=== PATIENT | female | born 1940 | race Caucasian/White ===

== ENCOUNTER 2016-08-02 07:01 | Inpatient (IN) | payer OTHER ==
[~2016-08-02] VITALS: Ht 152.4 cm; Wt 64.0 kg
[~2016-08-02 07:01] MED LIST: ADULT LOW DOSE81 M1 PO; ALTOPREV40 MG PO; BISOPROLOL-HCT1 EAC4 PO; BISOPROLOL-HCT1 EACH PO; CALCIUM600 MG PO; CYANOCOBALAM1000 MCG PO; Cipro PO; DITROPAN5 MG PO; Estrace PO; FORTEO20 MICROGR SC; GLUCOPHAGE500 MG PO; HYDROXYCHLOROQ200 MG PO; KADIAN30 MG PO; LISINOPRIL10 MG PO; LOVASTATIN20 MG PO; Levaquin PO; Martinic PO; Medrol Dosepak PO; NEURONTIN100 MG PO; OXAYDO5 MG PO; OXYCODONE5 MG PO; OxyCODONE PO; OxyCONTIN PO; PRINIVIL10 MG PO; PROTONIX40 MG PO; SYNTHROID50 MCG PO; VITAMIN D31000 UNI2 PO; VITAMIN D50000 UNI1 PO; [UNRECOGNIZED DRUG - REMARK] PO
[2016-08-02 07:49] VITALS: BP 102/62
[2016-08-02 08:02] LABS: POINT-OF-CARE METER ID UU14174212
[2016-08-02 15:13] LABS: C DIFF TOXIN NEGATIVE (NEGATIVE)
[2016-08-02 15:14] LABS: PROBE CHECK PASS; SPECIMEN PROCESSING CONTROL PASS
[2016-08-02 16:00] VITALS: BP 111/72
[2016-08-02 16:06] VITALS: BP 111/72
[2016-08-02 18:52] VITALS: BP 104/61
[2016-08-02 18:52] LABS: MCH 25.6 PG (29.0-34.0); MCHC 30.8 G/DL (30.0-36.0); MEAN PLAT.VOLUME 10.5 uM^3 (9.5-12.4); PLATELET COUNT 251 K/uL (156-360); RBC DIS.WIDTH-CV 15.2 % (11.8-14.6); RBC DIS.WIDTH-SD 45.8 % (39-53); RED BLOOD COUNT 4.46 M/uL (3.80-5.20)
[2016-08-02 19:03] LABS: WHITE BLOOD COUNT 16.4 K/uL (4.1-10.2)
[2016-08-02 19:27] LABS: ANION GAP 10 MEQ/L (2-14); CHLORIDE 102 MEQ/L (99-109); GFR ESTIMATE (CALCULATED) > 59 mL/min/; GLUCOSE 284 mg/dL (70-99); POTASSIUM 4.2 MEQ/L (3.7-5.4); SAMPLE HEMOLYSIS CHECK 0; SAMPLE ICTERIC CHECK 0; SAMPLE LIPEMIA CHECK 0; SODIUM 136 MEQ/L (136-147); UREA NITROGEN (BUN) 13 mg/dL (9-23)
[2016-08-02 19:28] LABS: MAGNESIUM 0.9 mg/dl (1.3-2.7)
[2016-08-03] VITALS (11 sets, daily range): BP systolic 80–147; BP diastolic 50–82
[2016-08-03 10:38] LABS: HEMATOCRIT 39.6 % (36.0-46.0); MCH 25.6 PG (29.0-34.0); MCHC 30.6 G/DL (30.0-36.0); MCV 83.7 FL (83-99); MEAN PLAT.VOLUME 10.2 uM^3 (9.5-12.4); PLATELET COUNT 231 K/uL (156-360); RBC DIS.WIDTH-CV 15.3 % (11.8-14.6); RBC DIS.WIDTH-SD 46.6 % (39-53); RED BLOOD COUNT 4.73 M/uL (3.80-5.20); WHITE BLOOD COUNT 12.8 K/uL (4.1-10.2)
[2016-08-03 11:08] LABS: ANION GAP 7 MEQ/L (2-14); CHLORIDE 102 MEQ/L (99-109); GFR ESTIMATE (CALCULATED) > 59 mL/min/; GLUCOSE 210 mg/dL (70-99); POTASSIUM 4.3 MEQ/L (3.7-5.4); SAMPLE HEMOLYSIS CHECK 0; SAMPLE ICTERIC CHECK 0; SAMPLE LIPEMIA CHECK 0; SODIUM 138 MEQ/L (136-147); UREA NITROGEN (BUN) 14 mg/dL (9-23)
[2016-08-03 11:13] LABS: MAGNESIUM 1.7 mg/dl (1.3-2.7)
[2016-08-04] VITALS (7 sets, daily range): BP systolic 122–137; BP diastolic 64–85
[2016-08-04 07:50] LABS: HEMATOCRIT 32.6 % (36.0-46.0); MCH 25.7 PG (29.0-34.0); MCHC 30.7 G/DL (30.0-36.0); MCV 83.8 FL (83-99); MEAN PLAT.VOLUME 10.3 uM^3 (9.5-12.4); PLATELET COUNT 185 K/uL (156-360); RBC DIS.WIDTH-CV 15.2 % (11.8-14.6); RED BLOOD COUNT 3.89 M/uL (3.80-5.20); WHITE BLOOD COUNT 12.2 K/uL (4.1-10.2)
[2016-08-04 08:17] LABS: ANION GAP 7 MEQ/L (2-14); CHLORIDE 103 MEQ/L (99-109); GFR ESTIMATE (CALCULATED) > 59 mL/min/; GLUCOSE 204 mg/dL (70-99); POTASSIUM 4.2 MEQ/L (3.7-5.4); SAMPLE HEMOLYSIS CHECK 0; SAMPLE ICTERIC CHECK 0; SAMPLE LIPEMIA CHECK 0; SODIUM 139 MEQ/L (136-147); UREA NITROGEN (BUN) 21 mg/dL (9-23)
[2016-08-04 08:19] LABS: MAGNESIUM 1.3 mg/dl (1.3-2.7)
[2016-08-04 21:45] LABS: C DIFF TOXIN ND (NEGATIVE)
[2016-08-05 04:14] VITALS: BP 137/83
[2016-08-05 05:54] LABS: MCH 25.5 PG (29.0-34.0); MCHC 30.3 G/DL (30.0-36.0); MCV 84.2 FL (83-99); MEAN PLAT.VOLUME 10.6 uM^3 (9.5-12.4); PLATELET COUNT 178 K/uL (156-360); RBC DIS.WIDTH-CV 15.3 % (11.8-14.6); RBC DIS.WIDTH-SD 47.3 % (39-53); RED BLOOD COUNT 3.68 M/uL (3.80-5.20); WHITE BLOOD COUNT 10.1 K/uL (4.1-10.2)
[2016-08-05 06:18] LABS: ANION GAP 9 MEQ/L (2-14); CHLORIDE 103 MEQ/L (99-109); GFR ESTIMATE (CALCULATED) > 59 mL/min/; GLUCOSE 206 mg/dL (70-99); MAGNESIUM 1.4 mg/dl (1.3-2.7); POTASSIUM 3.9 MEQ/L (3.7-5.4); SAMPLE HEMOLYSIS CHECK 0; SAMPLE ICTERIC CHECK 0; SAMPLE LIPEMIA CHECK 0; SODIUM 140 MEQ/L (136-147); UREA NITROGEN (BUN) 16 mg/dL (9-23)
[2016-08-05 07:05] VITALS: BP 139/78
[2016-08-05 11:15] VITALS: BP 157/68
[2016-08-05 15:15] VITALS: BP 147/87
[2016-08-05 20:00] VITALS: BP 157/86
[2016-08-05 20:33] VITALS: BP 125/78
[2016-08-06] VITALS (7 sets, daily range): BP systolic 118–144; BP diastolic 67–90
[2016-08-06 00:07] LABS: POINT-OF-CARE USER ID AHSUCEG
[2016-08-06 06:10] LABS: HEMATOCRIT 31.4 % (36.0-46.0); MCH 25.9 PG (29.0-34.0); MCHC 31.2 G/DL (30.0-36.0); MCV 82.8 FL (83-99); MEAN PLAT.VOLUME 10.5 uM^3 (9.5-12.4); PLATELET COUNT 206 K/uL (156-360); RBC DIS.WIDTH-CV 15.1 % (11.8-14.6); RED BLOOD COUNT 3.79 M/uL (3.80-5.20); WHITE BLOOD COUNT 8.9 K/uL (4.1-10.2)
[2016-08-06 06:33] LABS: POINT-OF-CARE USER ID AHSUCEG
[2016-08-06 06:37] LABS: ANION GAP 8 MEQ/L (2-14); CHLORIDE 102 MEQ/L (99-109); GFR ESTIMATE (CALCULATED) > 59 mL/min/; GLUCOSE 194 mg/dL (70-99); POTASSIUM 3.6 MEQ/L (3.7-5.4); SAMPLE HEMOLYSIS CHECK 0; SAMPLE ICTERIC CHECK 0; SAMPLE LIPEMIA CHECK 0; SODIUM 137 MEQ/L (136-147); UREA NITROGEN (BUN) 7 mg/dL (9-23)
[2016-08-06 06:49] LABS: MAGNESIUM 1.1 mg/dl (1.3-2.7)
[2016-08-07 00:05] LABS: POINT-OF-CARE USER ID AHSUCEG
[2016-08-07 03:56] VITALS: BP 131/78
[2016-08-07 07:03] VITALS: BP 134/84
[2016-08-07 07:15] LABS: HEMATOCRIT 31.3 % (36.0-46.0); MCH 25.5 PG (29.0-34.0); MCHC 30.7 G/DL (30.0-36.0); MCV 83.2 FL (83-99); PLATELET COUNT 213 K/uL (156-360); RBC DIS.WIDTH-CV 15.4 % (11.8-14.6); RBC DIS.WIDTH-SD 47.1 % (39-53); RED BLOOD COUNT 3.76 M/uL (3.80-5.20); WHITE BLOOD COUNT 7.3 K/uL (4.1-10.2)
[2016-08-07 07:40] LABS: ANION GAP 6 MEQ/L (2-14); CHLORIDE 102 MEQ/L (99-109); GFR ESTIMATE (CALCULATED) > 59 mL/min/; GLUCOSE 201 mg/dL (70-99); POTASSIUM 3.8 MEQ/L (3.7-5.4); SAMPLE HEMOLYSIS CHECK 0; SAMPLE ICTERIC CHECK 0; SAMPLE LIPEMIA CHECK 0; SODIUM 137 MEQ/L (136-147); UREA NITROGEN (BUN) 5 mg/dL (9-23)
[2016-08-07 11:00] VITALS: BP 131/72
[2016-08-07 15:43] VITALS: BP 138/78
== END 2016-08-07 18:04 | disposition home or self-care (01) | DRG 331 ==
LOC: 2SOUTH 07:01 → 2EAST 07:01 → 2SOUTH 12:37 → 2EAST 15:56
PROVIDERS: Physician Assistant; Surgery
PROC: 0DTF0ZZ Resection of Right Large Intestine, Open Approach (ICD-10-PCS; principal; 2016-08-02)
DX: C18.2 Malignant neoplasm of ascending colon (principal); I10 Essential (primary) hypertension; E11.9 Type 2 diabetes mellitus without complications; E78.5 Hyperlipidemia, unspecified; K21.0 Gastro-esophageal reflux disease with esophagitis; K44.9 Diaphragmatic hernia without obstruction or gangrene; R63.4 Abnormal weight loss; R19.09 Other intra-abdominal and pelvic swelling, mass and lump; M54.9 Dorsalgia, unspecified
CPT/HCPCS: 80048; 82378; 82948; 83735; 84100; 85027; 86850; 86900; 86901; 86920; 87493; 88309; 93005; 94799; J0330; J1100; J1170; J1335; J1650; J1815; J1885; J2405; J2550; J2710; J3010; J3475; J7030; J7050; J7120; P9016; P9047

== ENCOUNTER 2016-09-04 08:15 | Inpatient (IN) | payer OTHER ==
[~2016-09-04] VITALS: Ht 157.5 cm; Wt 86.5 kg
[2016-09-04 09:12] LABS: EOSINOPHIL (%) 0.6 % (0-5); EOSINOPHIL COUNT 0.1 K/uL (0-0.3); HEMATOCRIT 39.4 % (36.0-46.0); IMMATURE GRANULOCYTE (%) 0.3 % (0.0-0.7); IMMATURE GRANULOCYTE COUNT 0.3 K/uL; LYMPHOCYTE COUNT 1.3 K/uL (1.0-2.8); MCH 25.5 PG (29.0-34.0); MCV 82.3 FL (83-99); MEAN PLAT.VOLUME 10.6 uM^3 (9.5-12.4); MONOCYTE (%) 5.6 % (3-12); MONOCYTE COUNT 0.6 K/uL (0-0.8); NEUTROPHIL COUNT 9.5 K/uL (1.8-6.4); RBC DIS.WIDTH-CV 16.4 % (11.8-14.6); RBC DIS.WIDTH-SD 48.9 % (39-53)
[2016-09-04 09:13] LABS: CHLORIDE 92 mEq/L (99-109); POTASSIUM 4.9 mEq/L (3.7-5.4); SODIUM 134 mEq/L (136-147)
[2016-09-04 09:15] LABS: PLATELET COUNT 331 K/uL (156-360); RED BLOOD COUNT 4.79 M/uL (3.80-5.20); WHITE BLOOD COUNT 11.5 K/uL (4.1-10.2)
[2016-09-04 09:16] LABS: GLUCOSE 174 mg/dL (70-99)
[2016-09-04 09:17] LABS: ANION GAP 17 MEQ/L (2-14)
[2016-09-04 09:18] LABS: TOTAL BILIRUBIN 0.7 mg/dL (0.0-1.0)
[2016-09-04 09:19] LABS: ALKALINE PHOSPHATASE 69 IU/L (3-129); GFR ESTIMATE (CALCULATED) 10 mL/min/
[2016-09-04 09:20] LABS: UREA NITROGEN (BUN) 49 mg/dL (9-23)
[2016-09-04 11:10] LABS: ADD MIUA? YES; BILIRUBIN SMALL; BLOOD NEGATIVE; COLOR AMBER ((YELLOW)); GLUCOSE (STRIP) 50; KETONES NEGATIVE; LEUKOCYTES MODERATE; NITRITE NEGATIVE; PROTEIN (STRIP) 100; SPECIFIC GRAVITY 1.025 (1.000-1.030); UROBILINOGEN 0.2 MG/DL (0.2-1.0)
[2016-09-04 11:42] LABS: BACTERIA RARE /HPF; EPITHELIAL CELLS 2+ /HPF; HYALINE CASTS 30-40 /LPF; MUCUS 1+ /LPF; RED BLOOD CELLS 30-40 /HPF (0-5); WHITE BLOOD CELLS TNTC /HPF (0-5)
[2016-09-04 13:15] LABS: TROP-I INTERPRETATION NEGATIVE; TROPONIN-I 0.04 ng/mL (0.0-0.30)
[2016-09-04 13:23] LABS: BASE EXCESS -1.2 mEq/L (-3 to +3); BICARBONATE 25.2 mEq/L (22-26); CARBOXY HGB 1.9 % (0-5); METHEMOGLOBIN 1.2 % (0-1.5); PCO2 49 mm Hg (35-45); PO2 72 mm Hg (80-100); pH 7.32 (7.35-7.45)
[2016-09-04 13:25] LABS: COMMENTS - BLOOD GASES A+C+; DEVICE NC; O2 FLOW 3 L/MIN; SITE LR
[2016-09-04 14:07] LABS: URIC ACID 14.4 mg/dL (3.1-9.2)
[2016-09-04] MEDS ORDERED: ZIAC 5/6.251 TABLET PO (14:49)
[2016-09-04] MEDS ORDERED: PLAQUENIL200 MG PO (14:55)
[2016-09-04 20:45] LABS: CHLORIDE 101 mEq/L (99-109); POTASSIUM 5.2 mEq/L (3.7-5.4); SODIUM 136 mEq/L (136-147)
[2016-09-04 20:46] LABS: GLUCOSE 199 mg/dL (70-99)
[2016-09-04 20:48] LABS: ANION GAP 12 MEQ/L (2-14)
[2016-09-04 20:50] LABS: GFR ESTIMATE (CALCULATED) 12 mL/min/
[2016-09-04 20:51] LABS: UREA NITROGEN (BUN) 46 mg/dL (9-23)
[2016-09-04 21:00] VITALS: BP 98/56
[2016-09-04 21:10] VITALS: BP 98/56
[2016-09-04 21:15] VITALS: BP 90/59
[2016-09-04 21:30] VITALS: BP 83/57
[2016-09-04 22:00] VITALS: BP 90/57
[2016-09-04 22:26] LABS: METH RESISTANT S AUREUS PCR NEGATIVE (NEGATIVE)
[2016-09-04 22:29] LABS: PROBE CHECK PASS; SPECIMEN PROCESSING CONTROL PASS
[2016-09-04 23:00] VITALS: BP 83/49
[2016-09-05] VITALS (25 sets, daily range): BP systolic 73–113; BP diastolic 46–73
[2016-09-05 00:29] LABS: POINT-OF-CARE METER ID UU13113748
[2016-09-05 00:36] LABS: CHLORIDE 103 mEq/L (99-109); POTASSIUM 4.6 mEq/L (3.7-5.4); SODIUM 137 mEq/L (136-147)
[2016-09-05 00:37] LABS: MAGNESIUM 1.2 mg/dL (1.3-2.7)
[2016-09-05 00:38] LABS: GLUCOSE 167 mg/dL (70-99)
[2016-09-05 00:40] LABS: ANION GAP 11 MEQ/L (2-14)
[2016-09-05 00:42] LABS: GFR ESTIMATE (CALCULATED) 13 mL/min/
[2016-09-05 00:43] LABS: UREA NITROGEN (BUN) 45 mg/dL (9-23)
[2016-09-05 05:24] LABS: POINT-OF-CARE METER ID UU13113803
[2016-09-05 05:49] LABS: HEMATOCRIT 36.2 % (36.0-46.0); MCH 25.6 PG (29.0-34.0); MCHC 30.4 G/DL (30.0-36.0); MCV 84.4 FL (83-99); MEAN PLAT.VOLUME 10.8 uM^3 (9.5-12.4); PLATELET COUNT 281 K/uL (156-360); RBC DIS.WIDTH-CV 16.6 % (11.8-14.6); RBC DIS.WIDTH-SD 50.3 % (39-53); RED BLOOD COUNT 4.29 M/uL (3.80-5.20); WHITE BLOOD COUNT 11.2 K/uL (4.1-10.2)
[2016-09-05 07:09] LABS: ANION GAP 11 MEQ/L (2-14); CHLORIDE 100 MEQ/L (99-109); GFR ESTIMATE (CALCULATED) 15 mL/min/; GLUCOSE 153 mg/dL (70-99); MAGNESIUM 1.9 mg/dl (1.3-2.7); POTASSIUM 4.9 MEQ/L (3.7-5.4); SAMPLE HEMOLYSIS CHECK 0; SAMPLE ICTERIC CHECK 0; SAMPLE LIPEMIA CHECK 0; SODIUM 134 MEQ/L (136-147); UREA NITROGEN (BUN) 45 mg/dL (9-23)
[2016-09-05 12:09] LABS: POINT-OF-CARE METER ID UU13113803
[2016-09-05 16:29] LABS: BASE EXCESS -2.3 mEq/L (-3 to +3); BICARBONATE 24.2 mEq/L (22-26); CARBOXY HGB 3.5 % (0-5); COMMENTS - BLOOD GASES A+C+; DEVICE NC; METHEMOGLOBIN 1.5 % (0-1.5); O2 FLOW 6 L/MIN; PCO2 48 mm Hg (35-45); PO2 81 mm Hg (80-100); SITE RR; TOTAL RESP RATE 12 resp/min; pH 7.31 (7.35-7.45)
[2016-09-05 18:02] LABS: POINT-OF-CARE METER ID UU13113803
[2016-09-06] VITALS (27 sets, daily range): BP systolic 88–129; BP diastolic 51–88
[2016-09-06 00:39] LABS: POINT-OF-CARE METER ID UU13113803
[2016-09-06 05:51] LABS: HEMATOCRIT 32.8 % (36.0-46.0); MCH 25.8 PG (29.0-34.0); MCHC 30.8 G/DL (30.0-36.0); MCV 83.7 FL (83-99); MEAN PLAT.VOLUME 10.2 uM^3 (9.5-12.4); PLATELET COUNT 239 K/uL (156-360); RBC DIS.WIDTH-CV 16.3 % (11.8-14.6); RBC DIS.WIDTH-SD 49.8 % (39-53); RED BLOOD COUNT 3.92 M/uL (3.80-5.20); WHITE BLOOD COUNT 8.1 K/uL (4.1-10.2)
[2016-09-06 06:44] LABS: ANION GAP 9 MEQ/L (2-14); CHLORIDE 102 MEQ/L (99-109); GLUCOSE 229 mg/dL (70-99); MAGNESIUM 1.7 mg/dl (1.3-2.7); POTASSIUM 5.6 MEQ/L (3.7-5.4); SAMPLE HEMOLYSIS CHECK 0; SAMPLE ICTERIC CHECK 0; SAMPLE LIPEMIA CHECK 0; SODIUM 134 MEQ/L (136-147); UREA NITROGEN (BUN) 40 mg/dL (9-23)
[2016-09-06 06:56] LABS: GFR ESTIMATE (CALCULATED) 26 mL/min/
[2016-09-06 09:00] LABS: POINT-OF-CARE METER ID UU13113803
[2016-09-06 12:39] LABS: POINT-OF-CARE METER ID UU14162636
[2016-09-06 17:35] LABS: POINT-OF-CARE METER ID UU14162636
[2016-09-06 22:19] LABS: POINT-OF-CARE METER ID UU13113803
[2016-09-07] VITALS (15 sets, daily range): BP systolic 74–139; BP diastolic 49–89
[2016-09-07 05:53] LABS: HEMATOCRIT 31.4 % (36.0-46.0); MCHC 31.8 G/DL (30.0-36.0); MCV 81.8 FL (83-99); MEAN PLAT.VOLUME 10.4 uM^3 (9.5-12.4); PLATELET COUNT 220 K/uL (156-360); RBC DIS.WIDTH-CV 16.4 % (11.8-14.6); RBC DIS.WIDTH-SD 49.2 % (39-53); RED BLOOD COUNT 3.84 M/uL (3.80-5.20); WHITE BLOOD COUNT 9.6 K/uL (4.1-10.2)
[2016-09-07 06:37] LABS: ANION GAP 9 MEQ/L (2-14); CHLORIDE 102 MEQ/L (99-109); GFR ESTIMATE (CALCULATED) 39 mL/min/; GLUCOSE 210 mg/dL (70-99); MAGNESIUM 1.9 mg/dl (1.3-2.7); POTASSIUM 4.8 MEQ/L (3.7-5.4); SAMPLE HEMOLYSIS CHECK 0; SAMPLE ICTERIC CHECK 0; SAMPLE LIPEMIA CHECK 0; SODIUM 135 MEQ/L (136-147); UREA NITROGEN (BUN) 36 mg/dL (9-23)
[2016-09-07 08:41] LABS: POINT-OF-CARE METER ID UU13113731
[2016-09-07 12:07] LABS: POINT-OF-CARE METER ID UU13113731
[2016-09-07 17:39] LABS: POINT-OF-CARE METER ID UU13113731
[2016-09-07 22:01] LABS: POINT-OF-CARE METER ID UU14188625
[2016-09-08 04:00] VITALS: BP 124/83
[2016-09-08 07:11] LABS: HEMATOCRIT 31.8 % (36.0-46.0); MCH 25.6 PG (29.0-34.0); MCHC 31.1 G/DL (30.0-36.0); MCV 82.2 FL (83-99); MEAN PLAT.VOLUME 10.2 uM^3 (9.5-12.4); PLATELET COUNT 232 K/uL (156-360); RBC DIS.WIDTH-CV 16.7 % (11.8-14.6); RED BLOOD COUNT 3.87 M/uL (3.80-5.20); WHITE BLOOD COUNT 8.9 K/uL (4.1-10.2)
[2016-09-08 07:33] LABS: ANION GAP 10 MEQ/L (2-14); CHLORIDE 102 MEQ/L (99-109); GFR ESTIMATE (CALCULATED) 43 mL/min/; GLUCOSE 189 mg/dL (70-99); SAMPLE HEMOLYSIS CHECK 0; SAMPLE ICTERIC CHECK 0; SAMPLE LIPEMIA CHECK 0; SODIUM 133 MEQ/L (136-147); UREA NITROGEN (BUN) 34 mg/dL (9-23)
[2016-09-08 07:35] LABS: MAGNESIUM 2.3 mg/dl (1.3-2.7)
[2016-09-08 08:21] VITALS: BP 130/77
[2016-09-08 12:10] LABS: POINT-OF-CARE METER ID UU14188625
[2016-09-08 12:17] VITALS: BP 128/72
[2016-09-08 16:03] VITALS: BP 130/74
[2016-09-08 17:18] LABS: POINT-OF-CARE METER ID UU14174225
[2016-09-08 20:00] VITALS: BP 139/86
[2016-09-08 23:55] VITALS: BP 134/81
[2016-09-09] VITALS (7 sets, daily range): BP systolic 110–134; BP diastolic 64–83
[2016-09-09 07:36] LABS: ANION GAP 14 MEQ/L (2-14); CHLORIDE 103 MEQ/L (99-109); GFR ESTIMATE (CALCULATED) 43 mL/min/; GLUCOSE 211 mg/dL (70-99); POTASSIUM 4.8 MEQ/L (3.7-5.4); SAMPLE HEMOLYSIS CHECK 0; SAMPLE ICTERIC CHECK 0; SAMPLE LIPEMIA CHECK 0; SODIUM 133 MEQ/L (136-147); UREA NITROGEN (BUN) 34 mg/dL (9-23)
[2016-09-09 07:37] LABS: MAGNESIUM 1.9 mg/dl (1.3-2.7)
[2016-09-09 07:41] LABS: HEMATOCRIT 37.5 % (36.0-46.0); MCHC 31.5 G/DL (30.0-36.0); MCV 82.8 FL (83-99); MEAN PLAT.VOLUME 10.7 uM^3 (9.5-12.4); PLATELET COUNT 283 K/uL (156-360); RBC DIS.WIDTH-CV 16.9 % (11.8-14.6); RBC DIS.WIDTH-SD 51.3 % (39-53); RED BLOOD COUNT 4.53 M/uL (3.80-5.20)
[2016-09-09 07:54] LABS: WHITE BLOOD COUNT 12.4 K/uL (4.1-10.2)
[2016-09-09 08:53] LABS: BASE EXCESS -4.9 mEq/L (-3 to +3); BICARBONATE 19.5 mEq/L (22-26); CARBOXY HGB 2.1 % (0-5); METHEMOGLOBIN 1.8 % (0-1.5); pH 7.38 (7.35-7.45)
[2016-09-09 08:54] LABS: COMMENTS - BLOOD GASES A+C+; FI02 0.21 %; PCO2 33 mm Hg (35-45); PO2 46 mm Hg (80-100); SITE RR
[2016-09-09 09:44] LABS: ANION GAP 12 MEQ/L (2-14); CHLORIDE 103 MEQ/L (99-109); DIRECT BILIRUBIN 0.1 mg/dL (0.0-0.3); POTASSIUM 4.9 MEQ/L (3.7-5.4); SAMPLE HEMOLYSIS CHECK 0; SAMPLE ICTERIC CHECK 0; SAMPLE LIPEMIA CHECK 0; SODIUM 136 MEQ/L (136-147); TOTAL BILIRUBIN 0.5 MG/DL (0.0-1.0)
[2016-09-09 09:50] LABS: ALKALINE PHOSPHATASE 40 IU/L (3-129); GFR ESTIMATE (CALCULATED) 43 mL/min/; GLUCOSE 173 mg/dL (70-99); LIPASE 36 U/L (1.0-51.0); UREA NITROGEN (BUN) 34 mg/dL (9-23)
[2016-09-09 10:07] LABS: TROP-I INTERPRETATION NEGATIVE; TROPONIN-I 0.05 ng/mL (0.0-0.30)
[2016-09-09 12:05] LABS: BASE EXCESS -4.2 mEq/L (-3 to +3); BICARBONATE 19.6 mEq/L (22-26); PCO2 31 mm Hg (35-45); pH 7.41 (7.35-7.45)
[2016-09-09 12:06] LABS: COMMENTS - BLOOD GASES NA C+; O2 FLOW 15 L/MIN; PO2 62 mm Hg (80-100); SITE LR
[2016-09-09 12:07] LABS: DEVICE NCH; TOTAL RESP RATE 20 resp/min
[2016-09-09 13:06] LABS: POINT-OF-CARE METER ID UU13113698
[2016-09-09 14:04] LABS: COMMENTS - BLOOD GASES NA C+; DEVICE NCHH; FI02 70 %; O2 FLOW 40 L/MIN; PCO2 31 mm Hg (35-45); PO2 74 mm Hg (80-100); SITE RR; TOTAL RESP RATE 22 resp/min; pH 7.42 (7.35-7.45)
[2016-09-09 14:05] LABS: CARBOXY HGB 1.5 % (0-5); METHEMOGLOBIN 2.1 % (0-1.5)
[2016-09-09 14:06] LABS: BASE EXCESS -3.8 mEq/L (-3 to +3); BICARBONATE 19.8 mEq/L (22-26)
[2016-09-09 16:12] LABS: POINT-OF-CARE METER ID UU13113698
[2016-09-09 17:10] LABS: INTER. NORMALIZED RATIO 1.2; PROTHROMBIN TIME 11.8 (9.2-11.2); PTT 27.1 (25-32)
[2016-09-10] VITALS (7 sets, daily range): BP systolic 115–167; BP diastolic 73–95
[2016-09-10 01:24] LABS: POINT-OF-CARE METER ID UU13113781
[2016-09-10 07:29] LABS: HEMATOCRIT 31.8 % (36.0-46.0); MCHC 31.8 G/DL (30.0-36.0); MCV 81.7 FL (83-99); MEAN PLAT.VOLUME 10.8 uM^3 (9.5-12.4); PLATELET COUNT 206 K/uL (156-360); RBC DIS.WIDTH-CV 17.2 % (11.8-14.6); RED BLOOD COUNT 3.89 M/uL (3.80-5.20); WHITE BLOOD COUNT 10.7 K/uL (4.1-10.2)
[2016-09-10 07:38] LABS: EOSINOPHIL (%) 0.3 % (0-5); IMMATURE GRANULOCYTE (%) 0.3 % (0.0-0.7); LYMPHOCYTE COUNT 0.6 K/uL (1.0-2.8); MONOCYTE (%) 4.6 % (3-12); MONOCYTE COUNT 0.5 K/uL (0-0.8); NEUTROPHIL COUNT 9.5 K/uL (1.8-6.4)
[2016-09-10 08:00] LABS: ANION GAP 11 MEQ/L (2-14); CHLORIDE 105 MEQ/L (99-109); GFR ESTIMATE (CALCULATED) 47 mL/min/; GLUCOSE 201 mg/dL (70-99); MAGNESIUM 1.9 mg/dl (1.3-2.7); POTASSIUM 4.7 MEQ/L (3.7-5.4); SAMPLE HEMOLYSIS CHECK 0; SAMPLE ICTERIC CHECK 0; SAMPLE LIPEMIA CHECK 0; SODIUM 136 MEQ/L (136-147); UREA NITROGEN (BUN) 32 mg/dL (9-23)
[2016-09-11 03:06] VITALS: BP 154/90
[2016-09-11 03:36] LABS: MCH 25.6 PG (29.0-34.0); MCHC 31.3 G/DL (30.0-36.0); MCV 81.8 FL (83-99); MEAN PLAT.VOLUME 9.6 uM^3 (9.5-12.4); PLATELET COUNT 228 K/uL (156-360); RBC DIS.WIDTH-SD 49.3 % (39-53); RED BLOOD COUNT 3.91 M/uL (3.80-5.20); WHITE BLOOD COUNT 10.9 K/uL (4.1-10.2)
[2016-09-11 03:46] LABS: CHLORIDE 110 mEq/L (99-109); POTASSIUM 4.1 mEq/L (3.7-5.4); SODIUM 139 mEq/L (136-147)
[2016-09-11 03:48] LABS: GLUCOSE 201 mg/dL (70-99)
[2016-09-11 03:49] LABS: ANION GAP 10 MEQ/L (2-14)
[2016-09-11 03:52] LABS: GFR ESTIMATE (CALCULATED) > 59 mL/min/
[2016-09-11 03:53] LABS: UREA NITROGEN (BUN) 29 mg/dL (9-23)
[2016-09-11 03:55] LABS: MAGNESIUM 1.4 mg/dL (1.3-2.7)
[2016-09-11 07:20] VITALS: BP 154/99
[2016-09-11 07:46] LABS: POINT-OF-CARE METER ID UU14174216
[2016-09-11 11:10] VITALS: BP 130/96
[2016-09-11 11:29] LABS: POINT-OF-CARE METER ID UU13113698
[2016-09-11 15:00] VITALS: BP 153/87
[2016-09-11 16:14] LABS: POINT-OF-CARE METER ID UU14174216
[2016-09-11 18:23] LABS: INTER. NORMALIZED RATIO 1.3; PROTHROMBIN TIME 12.8 (9.2-11.2); PTT 62.9 (25-32)
[2016-09-11 19:55] VITALS: BP 162/96
[2016-09-11 21:17] LABS: POINT-OF-CARE METER ID UU14174216
[2016-09-12] VITALS (7 sets, daily range): BP systolic 129–159; BP diastolic 70–97
[2016-09-12 07:41] LABS: POINT-OF-CARE METER ID UU13113781
[2016-09-12 08:15] LABS: HEMATOCRIT 34.5 % (36.0-46.0); MCH 24.9 PG (29.0-34.0); MCHC 29.9 G/DL (30.0-36.0); MCV 83.3 FL (83-99); MEAN PLAT.VOLUME 10.2 uM^3 (9.5-12.4); PLATELET COUNT 270 K/uL (156-360); RBC DIS.WIDTH-CV 17.6 % (11.8-14.6); RBC DIS.WIDTH-SD 52.6 % (39-53); RED BLOOD COUNT 4.14 M/uL (3.80-5.20); WHITE BLOOD COUNT 11.5 K/uL (4.1-10.2)
[2016-09-12 08:23] LABS: EOSINOPHIL (%) 0.3 % (0-5); IMMATURE GRANULOCYTE (%) 0.7 % (0.0-0.7); IMMATURE GRANULOCYTE COUNT 0.1 K/uL; LYMPHOCYTE COUNT 0.7 K/uL (1.0-2.8); MONOCYTE (%) 3.8 % (3-12); MONOCYTE COUNT 0.4 K/uL (0-0.8); NEUTROPHIL (%) 89.4 % (45-76); NEUTROPHIL COUNT 10.3 K/uL (1.8-6.4)
[2016-09-12 08:47] LABS: ANION GAP 18 MEQ/L (2-14); CHLORIDE 107 MEQ/L (99-109); GFR ESTIMATE (CALCULATED) > 59 mL/min/; GLUCOSE 179 mg/dL (70-99); POTASSIUM 4.4 MEQ/L (3.7-5.4); SAMPLE HEMOLYSIS CHECK 0; SAMPLE ICTERIC CHECK 0; SAMPLE LIPEMIA CHECK 0; SODIUM 141 MEQ/L (136-147); UREA NITROGEN (BUN) 25 mg/dL (9-23)
[2016-09-12 11:42] LABS: POINT-OF-CARE METER ID UU13113781
[2016-09-12 16:34] LABS: POINT-OF-CARE METER ID UU14174216
[2016-09-12 21:12] LABS: POINT-OF-CARE METER ID UU13113781
[2016-09-13 03:55] VITALS: BP 146/97
[2016-09-13 05:27] LABS: HEMATOCRIT 34.4 % (36.0-46.0); MCH 24.8 PG (29.0-34.0); MCHC 29.7 G/DL (30.0-36.0); MCV 83.7 FL (83-99); PLATELET COUNT 261 K/uL (156-360); RBC DIS.WIDTH-CV 17.7 % (11.8-14.6); RBC DIS.WIDTH-SD 53.8 % (39-53); RED BLOOD COUNT 4.11 M/uL (3.80-5.20); WHITE BLOOD COUNT 9.9 K/uL (4.1-10.2)
[2016-09-13 06:11] LABS: ANION GAP 15 MEQ/L (2-14); CHLORIDE 108 MEQ/L (99-109); GFR ESTIMATE (CALCULATED) > 59 mL/min/; GLUCOSE 186 mg/dL (70-99); SAMPLE HEMOLYSIS CHECK 0; SAMPLE ICTERIC CHECK 0; SAMPLE LIPEMIA CHECK 0; SODIUM 141 MEQ/L (136-147); UREA NITROGEN (BUN) 24 mg/dL (9-23)
[2016-09-13 06:13] LABS: MAGNESIUM 1.2 mg/dl (1.3-2.7)
[2016-09-13 06:14] LABS: EOSINOPHIL (%) 0.6 % (0-5); EOSINOPHIL COUNT 0.1 K/uL (0-0.3); IMMATURE GRANULOCYTE (%) 1.2 % (0.0-0.7); IMMATURE GRANULOCYTE COUNT 0.1 K/uL; LYMPHOCYTE COUNT 0.7 K/uL (1.0-2.8); MONOCYTE (%) 5.9 % (3-12); MONOCYTE COUNT 0.6 K/uL (0-0.8); NEUTROPHIL (%) 85.1 % (45-76); NEUTROPHIL COUNT 8.4 K/uL (1.8-6.4)
[2016-09-13 07:20] VITALS: BP 138/91
[2016-09-13 12:09] LABS: POINT-OF-CARE METER ID UU14174216
[2016-09-13 13:00] VITALS: BP 148/81
[2016-09-13 15:00] VITALS: BP 138/88
[2016-09-13 20:57] LABS: POINT-OF-CARE METER ID UU14174216
[2016-09-13 21:21] VITALS: BP 136/87
[2016-09-13 23:16] VITALS: BP 137/90
[2016-09-14 05:27] VITALS: BP 144/94
[2016-09-14 07:46] VITALS: BP 132/101
[2016-09-14 07:55] LABS: HEMATOCRIT 34.7 % (36.0-46.0); MCH 24.7 PG (29.0-34.0); MCV 82.4 FL (83-99); MEAN PLAT.VOLUME 10.4 uM^3 (9.5-12.4); PLATELET COUNT 271 K/uL (156-360); RBC DIS.WIDTH-CV 18.1 % (11.8-14.6); RBC DIS.WIDTH-SD 53.3 % (39-53); RED BLOOD COUNT 4.21 M/uL (3.80-5.20)
[2016-09-14 08:10] LABS: ANION GAP 15 MEQ/L (2-14); CHLORIDE 106 MEQ/L (99-109); GFR ESTIMATE (CALCULATED) > 59 mL/min/; GLUCOSE 216 mg/dL (70-99); MAGNESIUM 1.2 mg/dl (1.3-2.7); SAMPLE HEMOLYSIS CHECK 0; SAMPLE ICTERIC CHECK 0; SAMPLE LIPEMIA CHECK 0; SODIUM 140 MEQ/L (136-147); UREA NITROGEN (BUN) 25 mg/dL (9-23)
[2016-09-14 09:41] VITALS: BP 129/93
[2016-09-14 10:49] VITALS: BP 133/88
[2016-09-14] MEDS ORDERED: LOVENOX60 MG/0.6 SC (12:00)
[2016-09-14] MEDS ORDERED: MIDODRINE HCL5 MG PO (12:00)
[2016-09-14] MEDS ORDERED: DOCUSATE SODIU100 MG PO (12:01)
[2016-09-14] MEDS ORDERED: FUROSEMIDE20 MG PO (12:01)
[2016-09-14] MEDS ORDERED: COMPAZINE10 MG PO (12:01)
[2016-09-14] MEDS ORDERED: METOCLOPRAMIDE10 MG PO (12:02)
== END 2016-09-14 18:14 | disposition hospice, home (50) | DRG 871 ==
LOC: EME 08:15 → 4WEST 11:38 → EDOF 11:38 → 4EAST 11:38 → 5SOUTH 11:38 → EDOF 20:46 → 4WEST 20:58 → 5SOUTH 09-07 17:56 → 4SOUTH 09-09 11:32 → 4EAST 09-09 11:45
PROVIDERS: Emergency Medicine; Hospitalist; Internal Medicine; Internal Medicine Critical Care Medicine; Internal Medicine Nephrology
DX: A41.9 Sepsis, unspecified organism (principal); R65.21 Severe sepsis with septic shock; N17.0 Acute kidney failure with tubular necrosis; N39.0 Urinary tract infection, site not specified; E87.1 Hypo-osmolality and hyponatremia; C18.2 Malignant neoplasm of ascending colon; C78.6 Secondary malignant neoplasm of retroperitoneum and peritoneum; C78.7 Secondary malignant neoplasm of liver and intrahepatic bile duct; E87.2 Acidosis; J69.0 Pneumonitis due to inhalation of food and vomit; I26.99 Other pulmonary embolism without acute cor pulmonale; I82.441 Acute embolism and thrombosis of right tibial vein; R18.0 Malignant ascites; I48.91 Unspecified atrial fibrillation; R09.02 Hypoxemia; R41.82 Altered mental status, unspecified; E86.0 Dehydration; E87.5 Hyperkalemia; E83.39 Other disorders of phosphorus metabolism; E83.42 Hypomagnesemia; R11.2 Nausea with vomiting, unspecified; I10 Essential (primary) hypertension; K21.9 Gastro-esophageal reflux disease without esophagitis; E78.5 Hyperlipidemia, unspecified; E11.65 Type 2 diabetes mellitus with hyperglycemia; I27.2 Other secondary pulmonary hypertension; G89.29 Other chronic pain; Z66 Do not resuscitate; Z90.49 Acquired absence of other specified parts of digestive tract; Z98.1 Arthrodesis status; Z79.82 Long term (current) use of aspirin
CPT/HCPCS: 36600; 70450; 71010; 71275; 74000; 74020; 74176; 74177; 74247; 76770; 80048; 80048 91; 80053; 80076; 80202; 81003; 82010; 82140; 82803; 82948; 83605; 83690; 83735; 83880; 84100; 84484; 84550; 85025; 85027; 85610; 85730; 87040; 87086; 87641; 93005; 93306; 93970; 94760; 94799; 99281; 99285; C9113; J0692; J1644; J1815; J1940; J2270; J2310; J2405; J2765; J2930; J3370; J3475; J7030; J7050; J7120; Q0164; S0030